=== PATIENT | male | born 1965 | race Caucasian/White ===

== ENCOUNTER 2016-07-26 10:00 | Outpatient (CLI) | payer OTHER ==
[~2016-07-26 10:00] MED LIST: SOTA80TA PO
[2016-07-26 11:03] LABS: ALBUMIN 3.8 g/dL (3.4-4.8); BILIRUBIN,DIRECT 0.2 mg/dL (0.0-0.3); CALCIUM 8.5 mg/dL (8.4-11.0); CREATININE 0.81 mg/dL (0.55-1.30); POTASSIUM 4.2 mmol/L (3.5-5.1); TOTAL PROTEIN, SERUM 7.3 g/dL (6.4-8.3)
[2016-07-26] MEDS ORDERED: IOHEXOL 100 ML IV ONE (11:17)
== END 2016-07-26 19:33 | disposition home or self-care (01) ==
LOC: SCT 10:00
PROVIDERS: ATTEND Family Medicine
DX: K76.0 Fatty (change of) liver, not elsewhere classified (principal); K76.9 Liver disease, unspecified; K46.9 Unspecified abdominal hernia without obstruction or gangrene; I70.90 Unspecified atherosclerosis; M19.90 Unspecified osteoarthritis, unspecified site
CPT/HCPCS: 36415; 74178; 80048; 80076; Q9967

== ENCOUNTER 2018-04-02 09:22 | Outpatient (CLI) | payer OTHER | END 2018-04-02 19:57 | disposition home or self-care (01) | LOC: SCA 09:22 | PROVIDERS: ATTEND Internal Medicine Cardiovascular Disease | DX: I48.0 Paroxysmal atrial fibrillation (principal); I10 Essential (primary) hypertension | CPT/HCPCS: 93306 ==

== ENCOUNTER → 2019-05-10 | Outpatient (CLI) | payer OTHER ==
[2019-05-10 20:10] LABS: BASOPHILS # (AUTO) 0.1 K/uL (0.0-0.2); BASOPHILS % (AUTO) 0.5 % (0.0-2.0); EOSINOPHILS # (AUTO) 0.1 K/uL (0.0-0.4); HEMOGLOBIN 15.9 g/dL (14.0-18.0); LYMPHOCYTES # (AUTO) 2.6 K/uL (1.0-5.5); MEAN CORPUSCULAR HEMOGLOBIN 32 pg (27-31); MEAN CORPUSCULAR HGB CONC 35 % (32-36); MEAN CORPUSCULAR VOLUME 92 fL (79.0-98.0); MONOCYTES # (AUTO) 0.6 K/uL (0.0-1.0); MONOCYTES % (AUTO) 6.5 % (1.7-9.3); NEUTROPHILS # (AUTO) 6.3 K/uL (1.8-7.7); PLATELET COUNT (AUTO) 250 K/uL (130-430); RED BLOOD CELL COUNT(AUTO) 5.02 MIL/uL (4.2-6.2); WHITE BLOOD COUNT (AUTO) 9.8 K/uL (4.8-10.8)
[2019-05-10 20:32] LABS: CHOLESTEROL 164 mg/dL (<200); HDL CHOLESTEROL 51 mg/dL (>45); LDL CHOLESTEROL 102 mg/dL (<100); TRIGLYCERIDES 109 mg/dL (30-150)
[2019-05-10 20:40] LABS: ALBUMIN 3.8 g/dL (3.4-4.8); CALCIUM 8.5 mg/dL (8.4-11.0); CREATININE 0.68 mg/dL (0.55-1.30); POTASSIUM 4.2 mmol/L (3.5-5.1); THYROID STIMULATING HORMONE 3.37 uIu/mL (0.36-3.74); TOTAL BILIRUBIN 1.5 mg/dL (0.0-1.0)
== END | disposition home or self-care (01) ==
LOC: SLB 18:26
PROVIDERS: ATTEND Internal Medicine Cardiovascular Disease
DX: E78.5 Hyperlipidemia, unspecified (principal)
CPT/HCPCS: 36415; 80053; 80061; 84443-TC; 85025

== ENCOUNTER 2020-08-07 00:39 | Inpatient (IN) | payer OTHER ==
[~2020-08-07] VITALS: Ht 177.8 cm; Wt 136.1 kg
[2020-08-07] VITALS (11 sets, daily range): BP systolic 90–130
[2020-08-07] MEDS ORDERED: DILTIAZEM HCL 25 MG/5 ML VIAL IVP ONE (01:00)
[2020-08-07 01:37] LABS: CORRECTED WHITE BLOOD COUNT 5.1 K/uL (4.5-11.0); HEMATOCRIT 46.8 % (36-54); HEMOGLOBIN 16.1 g/dL (14.0-18.0); MEAN CORPUSCULAR HEMOGLOBIN 31 pg (27-31); MEAN CORPUSCULAR HGB CONC 34 % (32-36); MEAN CORPUSCULAR VOLUME 91 fL (79.0-98.0); RED BLOOD CELL COUNT(AUTO) 5.14 MIL/uL (4.2-6.2); WHITE BLOOD COUNT (AUTO) 8.6 K/uL (4.8-10.8)
[2020-08-07 01:38] LABS: BASOPHILS % (AUTO) 0.5 % (0.0-2.0); EOSINOPHILS % (AUTO) 0.6 % (0.0-4.0); LYMPHOCYTES % (AUTO) 18.7 % (20.5-51.5); MONOCYTES % (AUTO) 6.2 % (1.7-9.3); NEUTROPHILS # (AUTO) 6.3 K/uL (1.8-7.7); PLATELET COUNT (AUTO) 250 K/uL (130-430); RED CELL DISTRIBUTION WIDTH 13.3 % (9.0-15.0)
[2020-08-07 01:39] LABS: LYMPHOCYTES # (AUTO) 1.6 K/uL (1.0-5.5); MONOCYTES # (AUTO) 0.5 K/uL (0.0-1.0)
[2020-08-07 01:52] LABS: CALCIUM 8.6 mg/dL (8.4-11.0); CREATININE 1.29 mg/dL (0.55-1.30); POTASSIUM 3.7 mmol/L (3.5-5.1)
[2020-08-07 02:04] LABS: ALBUMIN 3.6 g/dL (3.4-4.8); TOTAL BILIRUBIN 0.6 mg/dL (0.0-1.0)
[2020-08-07] MEDS ORDERED: [UNRECOGNIZED DRUG - CODE] PO (02:20)
[2020-08-07] MEDS ORDERED: DILT120C11 PO (02:23)
[2020-08-07] MEDS ORDERED: METOPROLOL TARTRATE 5 MG/5 ML VIAL IVP ONE (02:45)
[2020-08-07] MEDS ORDERED: ENOXAPARIN SODIUM 120 MG/0.8 ML SYRINGE SUBCUT ONE (03:00)
[2020-08-07] MEDS ORDERED: SOTALOL (AF) 80 MG TABLET PO ONE (04:00)
[2020-08-07] MEDS ORDERED: DILTIAZEM HCL 180 MG CAP.SR.24H PO ONE (09:30)
[2020-08-07] MEDS: SOTALOL HCL 80 MG TABLET PO SCH ×2 (09:38→21:36)
[2020-08-07] MEDS: APIXABAN 2.5 MG TABLET PO SCH ×2 (09:39→21:38)
[2020-08-08 00:20] VITALS: BP_SYST 125
[2020-08-08 07:28] LABS: BASOPHILS % (AUTO) 0.4 % (0.0-2.0); EOSINOPHILS # (AUTO) 0.1 K/uL (0.0-0.4); EOSINOPHILS % (AUTO) 0.9 % (0.0-4.0); HEMATOCRIT 43.7 % (36-54); LYMPHOCYTES # (AUTO) 2.1 K/uL (1.0-5.5); LYMPHOCYTES % (AUTO) 27.9 % (20.5-51.5); MEAN CORPUSCULAR HEMOGLOBIN 31 pg (27-31); MEAN CORPUSCULAR HGB CONC 34 % (32-36); MEAN CORPUSCULAR VOLUME 91 fL (79.0-98.0); MONOCYTES # (AUTO) 0.6 K/uL (0.0-1.0); MONOCYTES % (AUTO) 7.5 % (1.7-9.3); NEUTROPHILS # (AUTO) 4.7 K/uL (1.8-7.7); NEUTROPHILS % (AUTO) 63.3 % (40.0-70.0); PLATELET COUNT (AUTO) 224 K/uL (130-430); RED BLOOD CELL COUNT(AUTO) 4.82 MIL/uL (4.2-6.2); RED CELL DISTRIBUTION WIDTH 13.5 % (9.0-15.0); WHITE BLOOD COUNT (AUTO) 7.4 K/uL (4.8-10.8)
[2020-08-08 08:04] VITALS: BP_SYST 117
[2020-08-08] MEDS: SOTALOL HCL 80 MG TABLET PO SCH ×2 (08:19→08:23)
[2020-08-08] MEDS: APIXABAN 2.5 MG TABLET PO SCH (08:22)
[2020-08-08 08:33] LABS: ALBUMIN 3.3 g/dL (3.4-4.8); CALCIUM 8.2 mg/dL (8.4-11.0); CREATININE 0.8 mg/dL (0.55-1.30); POTASSIUM 3.8 mmol/L (3.5-5.1); THYROID STIMULATING HORMONE 1.62 uIu/mL (0.36-3.74); TOTAL BILIRUBIN 1.1 mg/dL (0.0-1.0)
[2020-08-08] MEDS ORDERED: ASA81 PO (08:46)
[2020-08-08] MEDS ORDERED: DILTIAZEM HCL 180 MG CAP.SR.24H PO SCH (09:00)
[2020-08-08 10:02] VITALS: BP_SYST 117
== END 2020-08-08 10:55 | disposition home or self-care (01) | DRG 309 ==
LOC: SED 00:39 → SIC 02:48 → STU 10:15
DX: I48.0 Paroxysmal atrial fibrillation (principal); Z68.41 Body mass index [BMI] 40.0-44.9, adult; E66.01 Morbid (severe) obesity due to excess calories; E78.5 Hyperlipidemia, unspecified; Z20.822 Contact with and (suspected) exposure to COVID-19; Z79.82 Long term (current) use of aspirin; Z79.899 Other long term (current) drug therapy; Z91.14 Patient's other noncompliance with medication regimen
CPT/HCPCS: 36415; 71045; 80053; 80061; 83735-TC; 83880; 84443-TC; 84484; 85025; 87081; 93005; G0378

== ENCOUNTER 2021-03-05 08:42 | Emergency (ER) | payer OTHER ==
[~2021-03-05] VITALS: Ht 177.8 cm; Wt 131.5 kg
[2021-03-05 08:42] VITALS: BP_SYST 156
[~2021-03-05 08:42] MED LIST changes: +ASA81 PO; +DILT120C11 PO; -SOTA80TA PO; +[UNRECOGNIZED DRUG - CODE] PO
--- NOTE | 2021-03-05 08:42 | NUR ---
BROUGHT BACK TO BED #5 AND TRIAGED. REPORT GIVEN TO SIMONE
--- NOTE | 2021-03-05 08:45 | NUR ---
Pt. came in c/o rapid heart rate has hx. of occassional AFIB, takes cardiazem at home, denies pain placed on surveillance monitor and EKG started.
--- NOTE | 2021-03-05 08:45 | NUR ---
ER at bedside examining patient.
[2021-03-05 09:00] LABS: BASOPHILS # (AUTO) 0.1 K/uL (0.0-0.2); BASOPHILS % (AUTO) 0.7 % (0.0-2.0); EOSINOPHILS # (AUTO) 0.1 K/uL (0.0-0.4); HEMATOCRIT 47.2 % (36-54); HEMOGLOBIN 16.6 g/dL (14.0-18.0); LYMPHOCYTES # (AUTO) 1.7 K/uL (1.0-5.5); LYMPHOCYTES % (AUTO) 21.7 % (20.5-51.5); MEAN CORPUSCULAR HEMOGLOBIN 32 pg (27-31); MEAN CORPUSCULAR HGB CONC 35 % (32-36); MEAN CORPUSCULAR VOLUME 90 fL (79.0-98.0); MONOCYTES # (AUTO) 0.4 K/uL (0.0-1.0); MONOCYTES % (AUTO) 4.8 % (1.7-9.3); NEUTROPHILS # (AUTO) 5.5 K/uL (1.8-7.7); NEUTROPHILS % (AUTO) 71.8 % (40.0-70.0); PLATELET COUNT (AUTO) 229 K/uL (130-430); RED BLOOD CELL COUNT(AUTO) 5.23 MIL/uL (4.2-6.2); RED CELL DISTRIBUTION WIDTH 12.9 % (9.0-15.0); WHITE BLOOD COUNT (AUTO) 7.6 K/uL (4.8-10.8)
[2021-03-05] MEDS ORDERED: DILTIAZEM HCL 60 MG TABLET PO ONE (09:00)
[2021-03-05] MEDS ORDERED: DILTIAZEM HCL 25 MG/5 ML VIAL IVP ONE (09:00)
--- NOTE | 2021-03-05 09:07 | NUR ---
IV Kimberly held; went to push and HR decreased to 99 spontaneously, informed Dr. Lainez, held IVP cardiazem and gave PO cardiazem
--- NOTE | 2021-03-05 09:12 | NUR ---
radiology at bedside for chest xray
[2021-03-05 09:16] LABS: CALCIUM 9.1 mg/dL (8.4-11.0); CREATININE 0.8 mg/dL (0.55-1.30)
[2021-03-05 09:21] LABS: ALBUMIN 3.7 g/dL (3.4-4.8); TOTAL BILIRUBIN 1.4 mg/dL (0.0-1.0)
[2021-03-05 09:34] LABS: PROTHROMBIN TIME 10.2 SECS (9.5-12.5)
[2021-03-05] MEDS ORDERED: IOHEXOL 350 mgI/mL, 150 ML INFUS..BTL IV ONE (10:11)
--- NOTE | 2021-03-05 10:14 | NUR ---
Consent for CTA with contrast signed
[2021-03-05 12:19] VITALS: BP_SYST 158
--- NOTE | 2021-03-05 12:20 | NUR ---
Patient given written and verbal discharge instructions and verbalizes understanding. ER Dr. Lainez discussed with patient the results and treatment provided. Patient in stable condition. ID arm band removed. IV catheter removed intact and dressing applied, no active bleeding. Patient educated on pain management and to follow up with PMD. Pain Scale 0. Opportunity for questions provided and answered. Medication side effect fact sheet provided.
== END 2021-03-05 12:20 | disposition home or self-care (01) ==
LOC: SED 08:42
DX: I48.20 Chronic atrial fibrillation, unspecified (principal); I48.91 Unspecified atrial fibrillation
CPT/HCPCS: 36415; 71045; 71275; 76376; 80053; 83880; 84484; 85025; 85610; 85730; 93005; 99285; J3490; Q9967

== ENCOUNTER 2021-04-26 10:52 | Emergency (ER) | payer OTHER ==
[~2021-04-26] VITALS: Ht 177.8 cm; Wt 129.3 kg
[2021-04-26 11:15] VITALS: BP_SYST 160
[2021-04-26] MEDS ORDERED: dilTIAZem HCL IVP 5 MG/ML VIAL IVP ONE (11:15)
--- NOTE | 2021-04-26 11:32 | NUR ---
Patient to ER bed 1 to gown for evaluation. Side rails up. Report given to Deonte STUART.
[2021-04-26 11:34] LABS: BASOPHILS % (AUTO) 0.6 % (0.0-2.0); EOSINOPHILS # (AUTO) 0.1 K/uL (0.0-0.4); EOSINOPHILS % (AUTO) 0.7 % (0.0-4.0); HEMATOCRIT 47.7 % (36-54); HEMOGLOBIN 16.7 g/dL (14.0-18.0); LYMPHOCYTES # (AUTO) 1.2 K/uL (1.0-5.5); LYMPHOCYTES % (AUTO) 14.3 % (20.5-51.5); MEAN CORPUSCULAR HEMOGLOBIN 31 pg (27-31); MEAN CORPUSCULAR HGB CONC 35 % (32-36); MEAN CORPUSCULAR VOLUME 89 fL (79.0-98.0); MONOCYTES # (AUTO) 0.4 K/uL (0.0-1.0); MONOCYTES % (AUTO) 4.5 % (1.7-9.3); NEUTROPHILS # (AUTO) 6.7 K/uL (1.8-7.7); NEUTROPHILS % (AUTO) 79.9 % (40.0-70.0); PLATELET COUNT (AUTO) 247 K/uL (130-430); RED BLOOD CELL COUNT(AUTO) 5.34 MIL/uL (4.2-6.2); WHITE BLOOD COUNT (AUTO) 8.4 K/uL (4.8-10.8)
[2021-04-26 11:36] LABS: CALCIUM 8.9 mg/dL (8.4-11.0); CREATININE 0.76 mg/dL (0.55-1.30); POTASSIUM 3.9 mmol/L (3.5-5.1)
[2021-04-26 11:42] LABS: ALBUMIN 3.7 g/dL (3.4-4.8); TOTAL BILIRUBIN 1.6 mg/dL (0.0-1.0)
[2021-04-26 13:11] VITALS: BP_SYST 137
--- NOTE | 2021-04-26 13:12 | NUR ---
Patient given written and verbal discharge instructions and verbalizes understanding. HUY MASTERS MD discussed with patient the results and treatment provided. Patient in stable condition. ID arm band removed. IV catheter removed intact and dressing applied, no active bleeding. . Patient educated on pain management and to follow up with PMD. Pain Scale 0. Opportunity for questions provided and answered. Medication side effect fact sheet provided.
== END 2021-04-26 13:11 | disposition home or self-care (01) ==
LOC: SED 10:52
DX: I48.91 Unspecified atrial fibrillation (principal); Z79.899 Other long term (current) drug therapy
CPT/HCPCS: 36415; 71045; 80053; 83880; 84484; 85025; 93005; 99285

== ENCOUNTER 2021-05-04 07:24 | Outpatient (CLI) | payer OTHER ==
[2021-05-04 10:49] LABS: ALBUMIN 3.8 g/dL (3.4-4.8); CALCIUM 8.5 mg/dL (8.4-11.0); CREATININE 0.82 mg/dL (0.55-1.30); THYROID STIMULATING HORMONE 0.89 uIu/mL (0.36-3.74); TOTAL BILIRUBIN 2.3 mg/dL (0.0-1.0)
== END 2021-05-04 19:28 | disposition home or self-care (01) ==
LOC: SLB 07:24
PROVIDERS: ATTEND Internal Medicine Cardiovascular Disease
DX: I10 Essential (primary) hypertension (principal); I48.0 Paroxysmal atrial fibrillation; E03.9 Hypothyroidism, unspecified; E78.5 Hyperlipidemia, unspecified
CPT/HCPCS: 36415; 80053; 80061; 84443

== ENCOUNTER 2021-06-15 09:42 | Outpatient (CLI) | payer OTHER | END 2021-06-15 20:10 | disposition home or self-care (01) | LOC: SMI 09:42 | PROVIDERS: ATTEND Family Medicine | DX: M47.812 Spondylosis without myelopathy or radiculopathy, cervical region (principal) | CPT/HCPCS: 72141 ==

== ENCOUNTER 2021-07-07 20:41 | Emergency (ER) | payer OTHER ==
[~2021-07-07] VITALS: Ht 177.8 cm; Wt 129.3 kg
[2021-07-07 20:44] VITALS: BP_SYST 154
--- NOTE | 2021-07-07 21:34 | NUR ---
Placed in room 06 . Placed on cardiac cath lab manager, blood pressure machine and pulse oximeter. To gown for exam. Side rails up.
[2021-07-07 21:40] LABS: BASOPHILS % (AUTO) 0.4 % (0.0-2.0); EOSINOPHILS # (AUTO) 0.1 K/uL (0.0-0.4); EOSINOPHILS % (AUTO) 0.8 % (0.0-4.0); HEMATOCRIT 48.8 % (36-54); HEMOGLOBIN 16.9 g/dL (14.0-18.0); LYMPHOCYTES # (AUTO) 2.7 K/uL (1.0-5.5); LYMPHOCYTES % (AUTO) 26.9 % (20.5-51.5); MEAN CORPUSCULAR HEMOGLOBIN 31 pg (27-31); MEAN CORPUSCULAR HGB CONC 35 % (32-36); MEAN CORPUSCULAR VOLUME 89 fL (79.0-98.0); MONOCYTES # (AUTO) 0.9 K/uL (0.0-1.0); MONOCYTES % (AUTO) 8.5 % (1.7-9.3); NEUTROPHILS # (AUTO) 6.4 K/uL (1.8-7.7); NEUTROPHILS % (AUTO) 63.4 % (40.0-70.0); PLATELET COUNT (AUTO) 297 K/uL (130-430); RED CELL DISTRIBUTION WIDTH 13.2 % (9.0-15.0); WHITE BLOOD COUNT (AUTO) 10.1 K/uL (4.8-10.8)
[2021-07-07 21:49] LABS: CALCIUM 8.6 mg/dL (8.4-11.0); CREATININE 0.78 mg/dL (0.55-1.30); POTASSIUM 3.7 mmol/L (3.5-5.1)
[2021-07-07 21:58] LABS: ALBUMIN 4.3 g/dL (3.4-4.8); TOTAL BILIRUBIN 1.5 mg/dL (0.0-1.0)
[2021-07-07] MEDS ORDERED: dilTIAZem HCL IVP 5 MG/ML VIAL IVP ONE ×2 (22:00→23:45)
--- NOTE | 2021-07-07 22:00 | NUR ---
DR. RUCKER AT BEDSIDE FOR MSE
[2021-07-07] MEDS ORDERED: DILTIAZEM HCL 60 MG TABLET PO ONE (23:45)
--- NOTE | 2021-07-08 | NUR ---
Pt walked in c/o palpitations that started today with mild SOB, +N, denies chest pain, vomiting. Pt has a hx of Afib with RVR.
--- NOTE | 2021-07-08 01:00 | NUR ---
Dr. Gomez at bedside updating pt.
[2021-07-08 01:15] VITALS: BP_SYST 113
--- NOTE | 2021-07-08 01:15 | NUR ---
Patient given written and verbal discharge instructions and verbalizes understanding. ER MD discussed with patient the results and treatment provided. Patient in stable condition. ID arm band removed. IV catheter removed intact and dressing applied, no active bleeding. Rx of NONE given. Patient educated on pain management and to follow up with PMD. Pain Scale 0. Opportunity for questions provided and answered. Medication side effect fact sheet provided.
== END 2021-07-08 01:15 | disposition home or self-care (01) ==
LOC: SED 20:41
DX: I48.20 Chronic atrial fibrillation, unspecified (principal); I48.91 Unspecified atrial fibrillation; Z79.899 Other long term (current) drug therapy
CPT/HCPCS: 36415; 71045; 80053; 84484; 85025; 93005; 96374; 96376; 99285; J3490

== ENCOUNTER 2021-08-09 06:59 | Outpatient (CLI) | payer OTHER ==
[2021-08-09 08:31] LABS: BASOPHILS # (AUTO) 0.1 K/uL (0.0-0.2); BASOPHILS % (AUTO) 0.7 % (0.0-2.0); EOSINOPHILS # (AUTO) 0.1 K/uL (0.0-0.4); EOSINOPHILS % (AUTO) 0.8 % (0.0-4.0); HEMATOCRIT 46.1 % (36-54); HEMOGLOBIN 15.9 g/dL (14.0-18.0); LYMPHOCYTES # (AUTO) 1.7 K/uL (1.0-5.5); LYMPHOCYTES % (AUTO) 21.6 % (20.5-51.5); MEAN CORPUSCULAR HEMOGLOBIN 31 pg (27-31); MEAN CORPUSCULAR HGB CONC 35 % (32-36); MEAN CORPUSCULAR VOLUME 89 fL (79.0-98.0); MONOCYTES # (AUTO) 0.5 K/uL (0.0-1.0); MONOCYTES % (AUTO) 6.9 % (1.7-9.3); NEUTROPHILS # (AUTO) 5.4 K/uL (1.8-7.7); PLATELET COUNT (AUTO) 244 K/uL (130-430); RED BLOOD CELL COUNT(AUTO) 5.16 MIL/uL (4.2-6.2); RED CELL DISTRIBUTION WIDTH 13.1 % (9.0-15.0); WHITE BLOOD COUNT (AUTO) 7.7 K/uL (4.8-10.8)
[2021-08-09 09:09] LABS: ALANINE AMINOTRANSFERASE 35 U/L (12-78); ALBUMIN 3.9 g/dL (3.4-4.8); ANION GAP 8 (5-15); ASPARTATE AMINOTRANSFERASE 16 U/L (10-37); CALCIUM 9.1 mg/dL (8.4-11.0); CHLORIDE 102 mmol/L (98-107); CREATININE 0.73 mg/dL (0.55-1.30); GLUCOSE 107 mg/dL (70-99); POTASSIUM 4.2 mmol/L (3.5-5.1); SODIUM SERUM 136 mmol/L (136-145); THYROID STIMULATING HORMONE 2.31 uIu/mL (0.36-3.74); TOTAL BILIRUBIN 1.2 mg/dL (0.0-1.0); UREA NITROGEN, BLOOD 15 mg/dL (8-21)
[2021-08-09 09:16] LABS: GFR AFRICAN AMERICAN 143 mL/min (>90)
[2021-08-09 09:59] LABS: C-REACTIVE PROTEIN QUANT < 0.2 mg/dL (0-0.5); CHOLESTEROL 160 mg/dL (<200); TRIGLYCERIDES 99 mg/dL (30-150)
[2021-08-09 10:00] LABS: HDL CHOLESTEROL 50 mg/dL (>45); LDL CHOLESTEROL 88 mg/dL (<100)
[2021-08-09 11:34] LABS: ERYTHROCYTE SEDIMENTATION RATE 7 MM/HR (0-15)
[2021-08-10 05:08] LABS: PROSTATE SPECIFIC AG 1.1 ng/mL (0.0-4.0); TESTOSTERONE, TOTAL SERUM 408 ng/dL (264-916)
[2021-08-10 06:06] LABS: HEMOGLOBIN A1C 5.1 % (4.8-5.6)
[2021-08-10 07:06] LABS: RA LATEX TURBID <10.0 IU/mL (<14.0)
[2021-08-10 14:06] LABS: ANTI NUCLEAR AB WITH REFLEX Negative (Negative)
== END 2021-08-09 20:30 | disposition home or self-care (01) ==
LOC: SLB 06:59
PROVIDERS: ATTEND Internal Medicine
DX: E55.9 Vitamin D deficiency, unspecified (principal); E29.1 Testicular hypofunction; I10 Essential (primary) hypertension; Z20.822 Contact with and (suspected) exposure to COVID-19
CPT/HCPCS: 36415; 80053; 80061; 82607; 83036; 84153; 84403; 84443; 85025; 85651-TC; 86038; 86140; 86431

== ENCOUNTER 2022-06-19 09:37 | Outpatient (CLI) | payer OTHER ==
[2022-06-19 10:37] LABS: LYMPHOCYTES # (AUTO) 1.5 K/uL (1.0-5.5); MEAN CORPUSCULAR HGB CONC 36 % (32-36); MONOCYTES # (AUTO) 0.4 K/uL (0.0-1.0)
[2022-06-19 10:38] LABS: BILIRUBIN,URINE NEGATIVE (NEGATIVE); BLOOD, URINE NEGATIVE (NEGATIVE); CLARITY/URINE CLEAR (CLEAR); COLOR,URINE YELLOW (YELLOW); GLUCOSE,URINE NEGATIVE (NEGATIVE); KETONES,URINE NEGATIVE (NEGATIVE); LEUKOCYTE ESTERASE ,URINE NEGATIVE (NEGATIVE); NITRITE, URINE NEGATIVE (NEGATIVE); PROTEIN URINE NEGATIVE (NEGATIVE); UROBILINOGEN,URINE 0.2 (0.2-1.0)
[2022-06-19 10:47] LABS: BASOPHILS % (AUTO) 0.4 % (0.0-2.0); EOSINOPHILS % (AUTO) 0.6 % (0.0-4.0); HEMATOCRIT 46.8 % (36-54); HEMOGLOBIN 16.7 g/dL (14.0-18.0); LYMPHOCYTES % (AUTO) 21.9 % (20.5-51.5); MEAN CORPUSCULAR HEMOGLOBIN 31 pg (27-31); MEAN CORPUSCULAR VOLUME 88 fL (79.0-98.0); NEUTROPHILS % (AUTO) 71.1 % (40.0-70.0); PLATELET COUNT (AUTO) 243 K/uL (130-430); RED BLOOD CELL COUNT(AUTO) 5.35 MIL/uL (4.2-6.2)
[2022-06-19 11:00] LABS: CALCIUM 9.2 mg/dL (8.4-11.0); CREATININE 0.68 mg/dL (0.55-1.30); THYROID STIMULATING HORMONE 1.68 uIu/mL (0.34-4.82); TOTAL BILIRUBIN 2.8 mg/dL (0.0-1.0)
[2022-06-20 08:06] LABS: PROSTATE SPECIFIC AG 1.1 ng/mL (0.0-4.0)
== END 2022-06-19 20:49 | disposition home or self-care (01) ==
LOC: SCA 09:37
PROVIDERS: ATTEND Internal Medicine
DX: I11.9 Hypertensive heart disease without heart failure (principal); I48.0 Paroxysmal atrial fibrillation; E78.5 Hyperlipidemia, unspecified; K76.0 Fatty (change of) liver, not elsewhere classified
CPT/HCPCS: 36415; 80053; 80061; 81003; 82306; 82607; 83037; 84153; 84443; 85025; 93005; 93306

== ENCOUNTER 2022-08-25 09:21 | Outpatient (CLI) | payer OTHER ==
[2022-08-25 11:20] LABS: BASOPHILS % (AUTO) 0.6 % (0.0-2.0); EOSINOPHILS % (AUTO) 0.7 % (0.0-4.0); HEMATOCRIT 47.5 % (36-54); HEMOGLOBIN 16.2 g/dL (14.0-18.0); LYMPHOCYTES # (AUTO) 1.2 K/uL (1.0-5.5); MEAN CORPUSCULAR HEMOGLOBIN 31 pg (27-31); MEAN CORPUSCULAR HGB CONC 34 % (32-36); MEAN CORPUSCULAR VOLUME 90 fL (79.0-98.0); MONOCYTES # (AUTO) 0.4 K/uL (0.0-1.0); MONOCYTES % (AUTO) 6.1 % (1.7-9.3); NEUTROPHILS # (AUTO) 5.1 K/uL (1.8-7.7); NEUTROPHILS % (AUTO) 74.6 % (40.0-70.0); PLATELET COUNT (AUTO) 265 K/uL (130-430); RED BLOOD CELL COUNT(AUTO) 5.28 MIL/uL (4.2-6.2); RED CELL DISTRIBUTION WIDTH 13.3 % (9.0-15.0); WHITE BLOOD COUNT (AUTO) 6.9 K/uL (4.8-10.8)
[2022-08-25 12:02] LABS: ALBUMIN 3.9 g/dL (3.4-4.8); CALCIUM 8.8 mg/dL (8.4-11.0); CREATININE 0.69 mg/dL (0.55-1.30); THYROID STIMULATING HORMONE 1.57 uIu/mL (0.34-4.82); TOTAL BILIRUBIN 1.5 mg/dL (0.0-1.0)
[2022-08-26 11:08] LABS: HEPATITIS A AB, IgM Negative (Negative); HEPATITIS B CORE AB, IgM Negative (Negative); HEPATITIS B SURFACE AG Negative (Negative)
[2022-08-26 12:06] LABS: AFP, TUMOR MARKER 2.5 ng/mL (0.0-8.4)
[2022-08-28 14:30] LABS: HEPATITIS C VIRUS AB Negative <0.8 s/co (0.0-0.7)
== END 2022-08-25 17:18 | disposition home or self-care (01) ==
LOC: SUS 09:21
PROVIDERS: ATTEND Internal Medicine
DX: K80.20 Calculus of gallbladder without cholecystitis without obstruction (principal); K76.89 Other specified diseases of liver; I48.0 Paroxysmal atrial fibrillation; E78.5 Hyperlipidemia, unspecified; E80.6 Other disorders of bilirubin metabolism
CPT/HCPCS: 36415; 76700-TC; 80053; 80061; 80074; 82105; 83037; 84443; 85025; 86803

== ENCOUNTER 2023-03-23 16:50 | Emergency (ER) | payer OTHER ==
[~2023-03-23] VITALS: Ht 177.8 cm; Wt 129.3 kg
[2023-03-23 17:02] VITALS: BP_SYST 147; PULSE 60; RESP 20; TEMP 98.3; O2SAT 97
[2023-03-23] MEDS ORDERED: LIDOCAINE 1%, 20 ML MDV 20 ML ONE (17:40)
[2023-03-23] MEDS ORDERED: BACI15OI13 TP (18:43)
== END 2023-03-23 18:27 | disposition home or self-care (01) ==
LOC: SED 16:50
DX: S61.211A Laceration without foreign body of left index finger without damage to nail, initial encounter (principal); Z79.899 Other long term (current) drug therapy; W26.0XXA Contact with knife, initial encounter; Y93.89 Activity, other specified; Y92.89 Other specified places as the place of occurrence of the external cause; Y99.8 Other external cause status
CPT/HCPCS: 99282; 12002; J2001

== ENCOUNTER 2023-09-27 07:35 | Outpatient (CLI) | payer OTHER ==
[~2023-09-27 07:35] MED LIST changes: +BACI15OI13 TP
[2023-09-27 08:11] LABS: BASOPHILS % (AUTO) 0.5 % (0.0-2.0); EOSINOPHILS # (AUTO) 0.1 K/uL (0.0-0.4); EOSINOPHILS % (AUTO) 0.6 % (0.0-4.0); HEMOGLOBIN 16.9 g/dL (14.0-18.0); LYMPHOCYTES # (AUTO) 1.9 K/uL (1.0-5.5); LYMPHOCYTES % (AUTO) 20.6 % (20.5-51.5); MEAN CORPUSCULAR HEMOGLOBIN 31 pg (27-31); MEAN CORPUSCULAR HGB CONC 35 % (32-36); MEAN CORPUSCULAR VOLUME 88 fL (79.0-98.0); MONOCYTES # (AUTO) 0.6 K/uL (0.0-1.0); MONOCYTES % (AUTO) 6.8 % (1.7-9.3); NEUTROPHILS # (AUTO) 6.7 K/uL (1.8-7.7); NEUTROPHILS % (AUTO) 71.5 % (40.0-70.0); PLATELET COUNT (AUTO) 274 K/uL (130-430); RED BLOOD CELL COUNT(AUTO) 5.43 MIL/uL (4.2-6.2); RED CELL DISTRIBUTION WIDTH 13.2 % (9.0-15.0); WHITE BLOOD COUNT (AUTO) 9.4 K/uL (4.8-10.8)
[2023-09-27 08:40] LABS: HEMOGLOBIN A1C 5.2 % (<5.7)
[2023-09-27 08:56] LABS: ALBUMIN 3.8 g/dL (3.4-4.8); CALCIUM 8.8 mg/dL (8.4-11.0); CREATININE 0.88 mg/dL (0.55-1.30); POTASSIUM 4.3 mmol/L (3.5-5.1); THYROID STIMULATING HORMONE 3.16 uIu/mL (0.34-4.82); TOTAL BILIRUBIN 2.3 mg/dL (0.0-1.0); TOTAL PROTEIN, SERUM 7.7 g/dL (6.4-8.3); URIC ACID 6.5 mg/dL (2.4-7.0)
== END 2023-09-27 18:34 | disposition home or self-care (01) ==
LOC: SLB 07:35
PROVIDERS: ATTEND Internal Medicine
DX: E78.5 Hyperlipidemia, unspecified (principal); I48.0 Paroxysmal atrial fibrillation; E55.9 Vitamin D deficiency, unspecified; E03.9 Hypothyroidism, unspecified; K76.0 Fatty (change of) liver, not elsewhere classified
CPT/HCPCS: 36415; 80053; 80061; 83037; 83735; 84153; 84443; 84550; 85025

== ENCOUNTER 2023-11-21 11:18 | Outpatient (CLI) | payer OTHER | END 2023-11-21 19:17 | disposition home or self-care (01) | LOC: SCA 11:18 | PROVIDERS: ATTEND Internal Medicine | DX: I08.1 Rheumatic disorders of both mitral and tricuspid valves (principal); I48.91 Unspecified atrial fibrillation | CPT/HCPCS: 93306 ==